=== PATIENT | male | born 1970 | race Caucasian/White ===

== ENCOUNTER 2025-04-08 09:57 | Emergency (ER) | payer SELFPAY ==
[~2025-04-08] VITALS: Ht 170.2 cm; Wt 70.0 kg
[2025-04-08 10:02] VITALS: O2SAT 100
[2025-04-08] MEDS: KETOROLAC 30MG/ML VIAL IM ONE (12:22)
[2025-04-08 13:19] LABS: CLARITY URINE CLEAR (CLEAR); COLOR URINE YELLOW (YELLOW); GLUCOSE URINE NEGATIVE (NEGATIVE); KETONES URINE NEGATIVE (NEGATIVE); LEUKOCYTE ESTERASE URINE NEGATIVE (NEGATIVE); NITRITE URINE NEGATIVE (NEGATIVE); OCCULT BLOOD URINE NEGATIVE (NEGATIVE); PH URINE 5.5 (4.5-8.0); PROTEIN URINE NEGATIVE (NEGATIVE); SPECIFIC GRAVITY URINE 1.025 (1.005-1.030); UROBILINOGEN URINE 1.0 E.U./dL (0.2-1.0)
[2025-04-08] MEDS ORDERED: PIPERACILLIN/TAZO 3.375G/50ML 50 ML IV ONE (14:45)
[2025-04-08] MEDS: SODIUM CHLORIDE 0.9% (SEPSIS BOLUS) IV ONE (15:21)
[2025-04-08] MEDS: CEFTRIAXONE 2GM/50ML 50 ML IV ONE (15:26)
[2025-04-08] MEDS: VANCOMYCIN 1G PREMIX 200 ML IV ONE (15:36)
[2025-04-08 15:53] LABS: BASOPHILS % 0.5 % (0.0-2.0); EOSINOPHILS % 2.6 % (0.0-5.0); HEMATOCRIT. 38.1 % (42.0-52.0); HEMOGLOBIN. 12.9 g/dL (14.0-18.0); LYMPHOCYTES % 25.3 % (20.0-50.0); MEAN PLATELET VOLUME 7.3 fl (7.4-10.4); MONOCYTES % 6.6 % (2.0-8.0); NEUTROPHILS % 65.0 % (40.0-76.0); PLATELET 431 x1000/uL (130-400); RED BLOOD CELL COUNT 4.05 mill/uL (4.7-6.1); RED CELL DISTRIBUTION WIDTH 12.4 % (11.6-14.6)
[2025-04-08 16:03] LABS: CREATININE 0.9 mg/dL (0.6-1.3); INR 1.0; PROTEIN TOTAL 6.7 g/dL (6.0-8.3); UREA NITROGEN BLOOD 18 mg/dL (9-23)
[2025-04-08 16:05] LABS: ASPARTATE AMINOTRANSFERASE 13 IU/L (<34); BILIRUBIN DIRECT < 0.1 mg/dL (<=3.0); BILIRUBIN TOTAL 0.3 mg/dL (0.1-1.0)
[2025-04-08] MEDS ORDERED: SULF1TAB48 MT (16:32)
[2025-04-08] MEDS ORDERED: IBUP-1455 MT (16:33)
[2025-04-08 17:22] VITALS: BP 127/73; PULSE 71; RESP 14; TEMP 36.4; O2SAT 100
== END 2025-04-08 17:29 | disposition home or self-care (01) ==
LOC: ER 10:09 → CANBEDREQ 17:31
DX: N45.3 Epididymo-orchitis (principal); E03.9 Hypothyroidism, unspecified; Z98.890 Other specified postprocedural states; Z79.01 Long term (current) use of anticoagulants
CPT/HCPCS: 80076; 80048; 81003; 83605; 85025; 85610; 85730; 36415; 84145; 93976; 76870; 96361; 96372; 96374; 96375; 99285; J0696; J1885; J3373; J7030; Z7610